=== PATIENT | male | born 1945 | race Native Hawaiian/Other Pacific Islander ===

== ENCOUNTER 2020-03-21 17:16 | Emergency (ER) | payer OTHER, MEDICARE ==
[~2020-03-21] VITALS: Ht 172.7 cm; Wt 67.1 kg
[2020-03-21 17:16] VITALS: BP 169/75; TEMP 97.8
[2020-03-21 17:59] LABS: PLATELET COUNT 257 K/uL (142-355)
[2020-03-21 18:08] LABS: POTASSIUM 3.9 mmol/L (3.6-5.2)
[2020-03-21] MEDS ORDERED: ASPIRIN DR81 MG (21:58)
[2020-03-21] MEDS ORDERED: LIPITOR20 MG PO (21:59)
[2020-03-21] MEDS ORDERED: CARV12.5 PO (22:00)
[2020-03-21] MEDS ORDERED: HYDRALAZINE50 MG PO (22:01)
[2020-03-21] MEDS ORDERED: LISI20TA11 PO (22:02)
[2020-03-21] MEDS ORDERED: TRAMADOL HYDROC50 MG PO ×2 (22:03→22:05)
[2020-03-21] MEDS ORDERED: TRAZ100T PO (22:06)
== END 2020-03-21 19:05 | disposition other institution (70) ==
LOC: ED 17:16
PROVIDERS: Family Medicine
DX: F22 Delusional disorders (principal); Z11.59 Encounter for screening for other viral diseases; Z04.6 Encounter for general psychiatric examination, requested by authority
CPT/HCPCS: 80053; 81000; 85027; 87635; 99283; U0003

== ENCOUNTER 2020-04-03 04:16 | Emergency (ER) | payer OTHER, MEDICARE ==
[~2020-04-03] VITALS: Ht 172.7 cm; Wt 67.1 kg
[~2020-04-03 04:16] MED LIST: ASPIRIN DR81 MG; CARV12.5 PO; HYDRALAZINE50 MG PO; LIPITOR20 MG PO; LISI20TA11 PO; TRAMADOL HYDROC50 MG PO; TRAZ100T PO
[2020-04-03 04:20] VITALS: TEMP 98.1
[2020-04-03 05:25] VITALS: BP 130/60
[2020-04-04] MEDS ORDERED: RISP0.25 PO ×2 (14:09)
[2020-04-04] MEDS ORDERED: MIRTAZAPINE7.5 MG PO (14:09)
[2020-04-04] MEDS ORDERED: CYAN10009 IM (14:09)
[2020-04-04] MEDS ORDERED: ESCI10TA PO (14:10)
[2020-04-04] MEDS ORDERED: CHOL100034 PO (14:10)
[2020-04-04] MEDS ORDERED: MEDR2.5T19 PO (14:10)
[2020-04-04] MEDS ORDERED: FOLI1TAB26 PO (14:10)
[2020-04-04] MEDS ORDERED: FURO20TA67 PO (14:10)
== END 2020-04-03 05:26 | disposition other institution (70) ==
LOC: ED 04:16
DX: S00.03XA Contusion of scalp, initial encounter (principal); S00.01XA Abrasion of scalp, initial encounter; W01.198A Fall on same level from slipping, tripping and stumbling with subsequent striking against other object, initial encounter; Y92.89 Other specified places as the place of occurrence of the external cause
CPT/HCPCS: 90471; 90715; 99283